=== PATIENT | male | born 1995 ===

== ENCOUNTER → 2018-05-17 | Outpatient (REF) | payer OTHER ==
[2018-05-17 11:36] LABS: SEMEN APPEARANCE OPAQUE (OPAQUE); SEMEN VISCOSITY LIQUID (LIQUID); SEMEN VOLUME 6.2 ml (4.0-5.0)
[2018-05-17 11:37] LABS: IMMOTILITY 41 %; NON PROGRESSIVE MOTILITY (c) 8 %; PROGRESSIVE MOTILITY (a) 51 % (>=32); SPERM CONCENTRATION 66.8 M/ml (>=15.0); TOTAL MOTILITY 59 % (>=40); WBC CONCENTRATION <=1 M/ml (<=1 M/ml)
[2018-05-17 11:38] LABS: % NORMAL FORMS 13 % (>=4); SPERM# 414.4 M/Ejac (>=39); TOTAL PROGRESSIVE SPERM 212.5 M/Ejac.
== END ==
LOC: M LAB REF 11:10
DX: N46.9 Male infertility, unspecified (principal)